=== PATIENT | male | born 1960 | race Hispanic/Latino ===

== ENCOUNTER 2016-12-25 10:26 | Emergency (ER) | payer SELFPAY ==
[~2016-12-25] VITALS: Ht 152.4 cm; Wt 65.0 kg
[~2016-12-25 10:26] MED LIST: AMARYL2 MG PO; AMLODIPINE BESYL5 MG PO; ASPIRIN EC81 MG PO; COREG6.25 MG PO; LIORESAL10 MG/TA1 PO; LISINOPRIL20 MG PO; METFORMIN HCL1000 MG PO; NORCO1 TA1 PO; PERI-COLACE1 TAB PO; TRAMADOL HYDROC50 MG PO
[2016-12-25] MEDS ORDERED: LISINOPRIL20 MG PO (10:35)
[2016-12-25 11:20] LABS: HEMATOCRIT 43.1 % (39.0-50.0); HEMOGLOBIN 14.9 g/dl (14.0-18.0); IMMATURE GRANULOCYTES 0.5 % (0.0-1.0); MEAN CELL VOLUME 91.5 fL CALC (80.0-100.0); MEAN CORPUSCULAR HGB 31.6 pG CALC (26.0-32.0); MEAN CORPUSCULAR HGB CONC 34.6 g/L CALC (32.0-36.0); NEUT# 6.52 thou/uL (1.82-7.42); RED BLOOD COUNT 4.71 mill/uL (4.70-6.10); RED CELL DISTRI WIDTH 12.7 % (11.5-15.5)
[2016-12-25 11:31] LABS: ALBUMIN 5.1 g/dL (3.2-5.0); ALKALINE PHOSPHATASE 129 u/l (38-126); AMYLASE 117 u/l (30-110); ANION GAP 24 (6-22 (CALC)); BILIRUBIN, TOTAL 0.9 mg/dL (0.0-1.4); BUN 63 mg/dL (9-20); BUN/CREATININE RATIO 12 (12-20 (CALC)); CALCIUM 9.6 mg/dL (8.4-10.2); CARBON DIOXIDE 26 mmol/l (22-30); CHLORIDE 85 mmol/l (95-108); GFR 12 ML/MIN (>=60 (CALC)); GFR FOR AFR.AMER. 15 ML/MIN (>=60 (CALC)); GLUCOSE 381 mg/dL (75-110); LIPASE 225 u/l (23-300); POTASSIUM 5.2 mmol/l (3.5-5.1); SGOT/AST 31 u/l (17-59); SGPT/ALT 39 u/l (21-72); SODIUM 130 mmol/l (137-146)
[2016-12-25 11:47] LABS: MYOGLOBIN 328 ng/mL (0 - 121)
[2016-12-25 14:36] LABS: URINE BLOOD DIPSTICK SMALL (NEGATIVE); URINE CLARITY CLEAR; URINE COLOR YELLOW; URINE GLUCOSE - DIPSTICK 100 mg/dL (NEGATIVE); URINE KETONE TRACE mg/dL (NEGATIVE); URINE LEUK ESTERASE NEGATIVE (NEGATIVE); URINE NITRITE - DIPSTICK NEGATIVE (Negative); URINE PH 5.5 (4.5-8.0); URINE PROTEIN - DIPSTICK 100 mg/dL (NEG-TRACE); URINE SPECIFIC GRAVITY >=1.030; URINE UROBILINOGEN - DIPSTICK 0.2 E.U./dL (0.2)
[2016-12-25 14:37] LABS: URINE BILIRUBIN - DIPSTICK SMALL (NEGATIVE)
[2016-12-25 14:54] LABS: URINE SQUAMOUS EPITHELIAL CELL FEW EPI/hpf (0-FEW)
[2016-12-25 16:52] VITALS: BP 124/63
== END 2016-12-25 16:52 | disposition short-term general hospital (02) | DRG 684 ==
LOC: ED 10:26
PROVIDERS: Emergency Medicine
DX: N17.9 Acute kidney failure, unspecified (principal); I10 Essential (primary) hypertension; R94.31 Abnormal electrocardiogram [ECG] [EKG]; R11.2 Nausea with vomiting, unspecified; E11.9 Type 2 diabetes mellitus without complications

== ENCOUNTER 2016-12-30 18:43 | Inpatient (IN) | payer SELFPAY ==
[~2016-12-30] VITALS: Ht 152.4 cm; Wt 65.0 kg
--- NOTE | 2016-12-30 19:04 | NUR ---
PT TO ROOM FOR EXAM
[2016-12-30 20:23] LABS: HEMATOCRIT 40.6 % (39.0-50.0); HEMOGLOBIN 14.2 g/dl (14.0-18.0); IMMATURE GRANULOCYTES 0.4 % (0.0-1.0); MEAN CELL VOLUME 92.3 fL CALC (80.0-100.0); MEAN CORPUSCULAR HGB 32.3 pG CALC (26.0-32.0); NEUT# 5.48 thou/uL (1.82-7.42); RED BLOOD COUNT 4.4 mill/uL (4.70-6.10); RED CELL DISTRI WIDTH 12.5 % (11.5-15.5)
[2016-12-30 20:40] LABS: ALBUMIN 4.5 g/dL (3.2-5.0); BILIRUBIN, TOTAL 0.5 mg/dL (0.0-1.4); CALCIUM 9.6 mg/dL (8.4-10.2); TOTAL PROTEIN 7.6 g/dL (6.3-8.2)
[2016-12-30 20:49] LABS: CREATININE 5.8 mg/dL (0.7-1.3)
[2016-12-30 21:14] LABS: URINE BLOOD DIPSTICK NEGATIVE (NEGATIVE); URINE CLARITY CLEAR; URINE COLOR YELLOW; URINE GLUCOSE - DIPSTICK NEGATIVE (NEGATIVE); URINE KETONE 15 mg/dL (NEGATIVE); URINE LEUK ESTERASE NEGATIVE (NEGATIVE); URINE NITRITE - DIPSTICK NEGATIVE (Negative); URINE PROTEIN - DIPSTICK 30 mg/dL (NEG-TRACE); URINE SPECIFIC GRAVITY >=1.030
[2016-12-30 21:17] LABS: URINE BILIRUBIN - DIPSTICK NEGATIVE (NEGATIVE)
[2016-12-30 21:25] LABS: URINE MUCUS FEW hpf (NONE-FEW); URINE RBC 0-2 RBC/hpf (0-5)
--- NOTE | 2016-12-30 22:39 | NUR ---
RETURNED FROM XRAY
--- NOTE | 2016-12-30 23:15 | NUR ---
NOTIFIED OF BP
[2016-12-30 23:41] LABS: BARBITURATES NEGATIVE (NEGATIVE); COCAINE NEGATIVE (NEGATIVE); METHADONE NEGATIVE (NEGATIVE); OXCYCODONE NEGATIVE (NEGATIVE); TETRAHYDROCANNABIONOL NEGATIVE (NEGATIVE); TRICYLIC ANTIDEPRESSANTS NEGATIVE (NEGATIVE)
[2016-12-31] VITALS (7 sets, daily range): BP systolic 100–133; BP diastolic 61–79
--- NOTE | 2016-12-31 00:03 | NUR ---
REPORT TO EVELYN/PT BEING ADMITTED TO 290
--- NOTE | 2016-12-31 00:18 | NUR ---
PT. ARRIVED TO THE FLOOR VIA STRETCHER ACCOMPANIED BY ER NURSE. PT. A/A/OX3. PT. ABLE TO AMBULATE TO SCALE AND BED WITH STANDBY ASSIST. BOLUS OF NS INFUSING AT THIS TIME. PT. REPORTS HE HAS BEEN GETTING WEAK AND FEELING DIZZY, PT. INSTRUCTED TO CALL FOR ALL OOB NEEDS, VERBALIZES UNDERSTANDING. ADMISSION ASSESSMENT COMPLETED. PT. UPDATED WITH POC, VERBALIZES UNDERSTANDING. PT. REPORTS LAST BM WAS ON Wednesday12/28/16, WILL MEDICATE WITH ORDERED MIRALAX, ALSO PROVIDED WITH PRUNE JUICE. PT. GIVEN FOOD PTS REQUESTED. ENCOURAGED TO CALL FOR ANY NEEDS. CALL LIGHT IS IN REACH. WILL CONTINUE TO MONITOR.
--- NOTE | 2016-12-31 03:23 | NUR ---
PT. RESTING IN BED AWAKENED AT THIS TIME FOR AM VS. VSS. NO DISTRESS NOTED. DENIES NEEDS. URINAL EMPTIED OF 225 ML OF DARK YELLOW CLEAR URINE. PT. INSTRUCTED TO CALL FOR ANY NEEDS. CALL LIGHT IS IN REACH.
--- NOTE | 2016-12-31 05:33 | NUR ---
PT. RESTING IN BED WITH NO DISTRESS NOTED. PT. REPORTS FEELING A LITTLE BETTER THIS MORNING. PT. REPORTS SMALL BM THROUGHOUT SHIFT, ENCOURAGED TO DRINK WATER. URINAL EMPTIED OF 225 ML OF DARK CLEAR YELLOW. SCHED HEPARIN GIVEN PER ORDER. ENCOURAGED TO CALL FOR ANY NEEDS. CALL LIGHT IS IN REACH.
[2016-12-31 06:23] LABS: HEMATOCRIT 36.4 % (39.0-50.0); HEMOGLOBIN 12.6 g/dl (14.0-18.0); MEAN CELL VOLUME 92.9 fL CALC (80.0-100.0); MEAN CORPUSCULAR HGB 32.1 pG CALC (26.0-32.0); MEAN CORPUSCULAR HGB CONC 34.6 g/L CALC (32.0-36.0); RED BLOOD COUNT 3.92 mill/uL (4.70-6.10); RED CELL DISTRI WIDTH 12.5 % (11.5-15.5)
[2016-12-31 06:54] LABS: ALBUMIN 3.5 g/dL (3.2-5.0); CALCIUM 8.6 mg/dL (8.4-10.2); CREATININE 2.6 mg/dL (0.7-1.3); MAGNESIUM 2.4 mg/dL (1.6-2.3); POTASSIUM 4.7 mmol/l (3.5-5.1)
--- NOTE | 2016-12-31 07:00 | NUR ---
RECEIVED BEDSIDE REPORT FROM EVELYN GARBER. RESTING IN SEMI FOWLERS WITH EYES CLOSED, AWAKENS EASILY. RESPS EVEN AND UNLABORED ON ROOM AIR, TELE MONITOR IN PLACE. VOICES NO C/O AT THIS TIME. PLAN OF CARE DISCUSSED. SAFETY PRECAUTIONS REINFORCED. BED IN LOWEST POSITION WITH WHEELS LOCKED. CALL LIGHT WITHIN REACH. WILL CONTINUE TO MONITOR.
--- NOTE | 2016-12-31 12:40 | NUR ---
AMBULATING IN ROOM WITH STEADY GAIT. RESPS EVEN AND UNLABORED ON ROOM AIR, TELE MONITOR IN PLACE. MEDICATED WITH MIRALAX PO PER PT REQUEST. REPORTS MAZINIIVIVIANA HAD SMALL BM YESTERDAY. CALL LIGHT WITHIN REACH. WILL CONTINUE TO MONITOR.
--- NOTE | 2016-12-31 14:05 | NUR ---
DR LUTHER IN WITH PT AT THIS TIME.
--- NOTE | 2016-12-31 16:00 | NUR ---
SITTING ON SIDE OF BED. RESPS EVEN AND UNLABORED ON ROOM AIR, TELE MONITOR IN PLACE. REPORTS HAD SMALL LOOSE BM EARLIER TODAY. MEDICATED WITH ZOFRAN 4MG IVP FOR C/O NAUSEA. DENIES PAIN OR DISCOMFORT. #20 LFA INFUSING WITHOUT DIFFICULTY, SITE APPEARS HEALTHY. CALL LIGHT WIHTIN REACH. WILL CONTINUE TO MONITOR.
--- NOTE | 2016-12-31 21:25 | NUR ---
PT IN BED AWAKE. ASSESSMENT COMPLETE. SCHEDULED MEDS GIVE. DENIES NEEDS. CALL LIGHT IN REACH.
--- NOTE | 2017-01-01 00:16 | NUR ---
PT IN BED WITH EYES CLOSED.RESP EVEN AND UNLABORED. NO S/S OF DISTRESS. CALL LIGHT IN REACH.
[2017-01-01 04:40] VITALS: BP 141/80
--- NOTE | 2017-01-01 05:43 | NUR ---
PT IN BED AWAKE. DENIES NEEDS. NO S/S OF DISTRESS. CALL LIGHT IN REACH
[2017-01-01 06:37] LABS: ANION GAP 12 (6-22 (CALC)); BUN 22 mg/dL (9-20); BUN/CREATININE RATIO 34 (12-20 (CALC)); CARBON DIOXIDE 24 mmol/l (22-30); CHLORIDE 110 mmol/l (95-108); CREATININE 0.7 mg/dL (0.7-1.3); GFR > 60 ML/MIN (>=60 (CALC)); GFR FOR AFR.AMER. > 60 ML/MIN (>=60 (CALC)); GLUCOSE 143 mg/dL (75-110); SODIUM 140 mmol/l (137-146)
[2017-01-01 06:41] LABS: POTASSIUM 5.6 mmol/l (3.5-5.1)
--- NOTE | 2017-01-01 07:00 | NUR ---
RECEIVED BEDSIDE REPORT FROM EVELYN GARBER. RESPS EVEN AND UNLABORED ON ROOM AIR, TELE MONITOR IN PLACE. AMBULATING IN ROOM WITH STEADY GAIT. #20 LFA INFUSING WITHOUT DIFFICULTY, SITE APPEARS HEALTHY. VOICES NO C/O AT THIS TIME. PLAN OF CARE DISCUSSED. SAFETY PRECAUTIONS IN PLACE. BED IN LOWEST POSITION WITH WHEELS LOCKED. CALL LIGHT WITHIN REACH. WILL CONTINUE TO MONITOR.
[2017-01-01 08:37] VITALS: BP 126/70
--- NOTE | 2017-01-01 10:00 | NUR ---
DR LUTHER IN TO SEE PT, NEW ORDERS RECEIVED.
[2017-01-01] MEDS ORDERED: ASPIRIN CHEWABL81 MG PO (10:23)
[2017-01-01] MEDS ORDERED: ATORVASTATIN CA10 MG PO (10:23)
--- NOTE | 2017-01-01 12:59 | NUR ---
Discharge instructions given. Patient verbalizes understanding of same. Discharged in stable condition via Wheelchair to Home with family. All belongings sent with pt.
== END 2017-01-01 13:00 | disposition home or self-care (01) | DRG 684 ==
LOC: ENPENDDIS → ED 18:43 → ED-I 23:17 → ED 23:27 → MS2 23:28
PROVIDERS: Emergency Medicine; Internal Medicine; ADMIT Internal Medicine; ATTEND Internal Medicine
DX: N17.9 Acute kidney failure, unspecified (principal); I95.9 Hypotension, unspecified; E11.9 Type 2 diabetes mellitus without complications; I10 Essential (primary) hypertension; E78.5 Hyperlipidemia, unspecified; N40.0 Benign prostatic hyperplasia without lower urinary tract symptoms; E86.0 Dehydration; K59.00 Constipation, unspecified; Z79.84 Long term (current) use of oral hypoglycemic drugs

== ENCOUNTER 2020-02-02 14:12 | Emergency (ER) | payer SELFPAY ==
[~2020-02-02] VITALS: Ht 152.4 cm; Wt 59.1 kg
[~2020-02-02 14:12] MED LIST changes: +ASPIRIN CHEWABL81 MG PO; +ATORVASTATIN CA10 MG PO
[2020-02-02] MEDS ORDERED: FLEXERIL PO (18:11)
[2020-02-02] MEDS ORDERED: NAPROXEN500 MG PO (18:11)
[2020-02-02 18:24] VITALS: BP 145/68
== END 2020-02-02 18:24 | disposition home or self-care (01) | DRG 552 ==
LOC: ED 14:12
DX: S33.5XXA Sprain of ligaments of lumbar spine, initial encounter (principal); E11.9 Type 2 diabetes mellitus without complications; I10 Essential (primary) hypertension; X50.3XXA Overexertion from repetitive movements, initial encounter; Y93.H2 Activity, gardening and landscaping; Y92.89 Other specified places as the place of occurrence of the external cause; Y99.0 Civilian activity done for income or pay; Z79.84 Long term (current) use of oral hypoglycemic drugs

== ENCOUNTER 2021-08-22 11:30 | Emergency (ER) | payer SELFPAY ==
[~2021-08-22] VITALS: Ht 152.4 cm; Wt 65.0 kg
[~2021-08-22 11:30] MED LIST changes: +FLEXERIL PO; +NAPROXEN500 MG PO
[2021-08-22] MEDS ORDERED: DECADRON6 MG PO (15:56)
[2021-08-22 16:05] VITALS: BP 123/71
== END 2021-08-22 16:05 | disposition home or self-care (01) | DRG 179 ==
LOC: ED 11:30
DX: U07.1 COVID-19 (principal); I10 Essential (primary) hypertension; E11.9 Type 2 diabetes mellitus without complications; Z79.84 Long term (current) use of oral hypoglycemic drugs

== ENCOUNTER 2021-11-03 18:00 | Emergency (ER) | payer SELFPAY ==
[~2021-11-03] VITALS: Ht 152.4 cm; Wt 68.0 kg
[~2021-11-03 18:00] MED LIST changes: +DECADRON6 MG PO
[2021-11-03] MEDS ORDERED: ERYTHROMYCI3 OU (19:08)
[2021-11-03 19:47] VITALS: BP 147/74
[2021-11-03 19:50] VITALS: BP 148/83
[2021-11-03 19:55] VITALS: BP 121/63
== END 2021-11-03 20:01 | disposition home or self-care (01) | DRG 125 ==
LOC: ED 18:00
DX: H10.9 Unspecified conjunctivitis (principal); E11.9 Type 2 diabetes mellitus without complications; I10 Essential (primary) hypertension; Z79.84 Long term (current) use of oral hypoglycemic drugs